=== PATIENT | female | born 1975 | race Caucasian/White ===

== ENCOUNTER → 2022-11-10 | Outpatient (CLI) | payer OTHER ==
[~2022-11-10] MED LIST: PROHANCE 279.3MG/ML 15ML VIAL ONE
== END ==
LOC: M PLAIMG 08:55
PROVIDERS: ATTEND Physician Assistant
DX: H93.A2 Pulsatile tinnitus, left ear (principal)
CPT/HCPCS: 70553; A9576

== ENCOUNTER → 2024-08-25 | Outpatient (CLI) | payer BC | LOC: M PLAIMG 11:53 | PROVIDERS: ATTEND Physician Assistant | DX: J32.8 Other chronic sinusitis (principal) ==